=== PATIENT | female | born 2005 | race Caucasian/White ===

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

== ENCOUNTER → 2024-02-27 | Outpatient (REF) | payer BC ==
[~2024-02-27] MED LIST: LEXA1TAB2; ONDA4TAB6 PO
[2024-02-27 17:58] LABS: IRON (FE) 115 UG/DL (50-170); PERCENT SATURATION 34.8 % (13.2-45.0); TOTAL IRON BINDING CAPACITY 330 UG/DL (250-425)
[2024-02-27 18:00] LABS: FERRITIN 35.2 NG/ML (7.3-270.7)
[2024-02-27 18:13] LABS: HEPATITIS B SURFACE ANTIGEN NEGATIVE (NEGATIVE)
[2024-02-27 18:33] LABS: HEPATITIS C VIRUS ABY INDEX 0.03 INDEX (<0.8)
[2024-02-27 18:34] LABS: HEPATITIS B CORE ANTIBODY IGM NEGATIVE (NEGATIVE)
[2024-02-29 13:07] LABS: ANTINUCLEAR ANTIBODIES DIRECT Negative (Negative); CERULOPLASMIN 18.8 mg/dL (19.0-39.0)
== END ==
LOC: M LAB REF 16:25
PROVIDERS: ATTEND Internal Medicine
DX: K76.0 Fatty (change of) liver, not elsewhere classified (principal); D64.9 Anemia, unspecified

== ENCOUNTER → 2024-06-05 | Outpatient (REF) | payer BC ==
[~2024-06-05] MED LIST changes: +ONDA-282 PO; -ONDA4TAB6 PO
[2024-06-05 18:21] LABS: PERCENT SATURATION 33.7 % (13.2-45.0)
[2024-06-05 18:24] LABS: FERRITIN 54.1 NG/ML (7.3-270.7)
== END ==
LOC: M LAB REF 16:20
PROVIDERS: ATTEND Internal Medicine
DX: D64.9 Anemia, unspecified (principal)

== ENCOUNTER → 2024-08-06 | Outpatient (REF) | payer BC | LOC: M LAB REF 16:07 | PROVIDERS: ATTEND Student in an Organized Health Care Education/Training Program | DX: J02.9 Acute pharyngitis, unspecified (principal) ==